=== PATIENT | male | born 1935 | race Hispanic/Latino ===

== ENCOUNTER → 2018-04-28 | Outpatient (CLI) | payer MEDICARE ==
--- NOTE | 2018-04-28 15:59 | Diagnostic Imaging Report ---
EXAMINATION: Head CT HISTORY: Alteration of consciousness, COMPARISON: None. TECHNIQUE: Multidetector axial images were obtained without contrast from the foramen magnum to the vertex . The images were reconstructed using brain and bone algorithms. Thin section brain images were reformatted into coronal and sagittal planes. Image quality: Motion/streaking artifact limits the evaluation of the skull base and posterior cranial fossa. Dose modulation, iterative reconstruction, and/or weight based adjustment of the mA/kV was utilized to reduce the radiation dose to as low as reasonably achievable. FINDINGS: Parenchyma: 1. Few scattered white matter hypodensities, most likely nonspecific chronic microvascular ischemic changes. 2. Scattered peripheral dystrophic calcifications, such as in the left inferior parietal lobule may represent sequela from remote infection such as neurocysticercosis.. 3. No mass or hemorrhage. No CT evidence of acute territorial vascular insult. Extra-axial spaces:No abnormal density. No extra-axial fluid collections Brain volume: Mild generalized spondylosis. Ventricles: No hydrocephalus or displacement. Arteries: No density suggestive of thrombus. Dural sinuses: No abnormal density. Extra-axial spaces: No abnormal density. Foramen magnum: No mass, Chiari malformation, or basilar invagination. Sella: No obvious mass. Paranasal/mastoid sinuses: Imaged portions unremarkable. Skull/Scalp: No lytic or blastic lesions. No fractures. IMPRESSION: 1. No acute intracranial abnormalities, no mass, hemorrhage or acute cortical infarcts. 2. Mild age-related chronic microvascular ischemic changes. 3. Mild generalized parenchymal volume loss. 4. Small peripheral dystrophic calcifications as detailed above. Signed by: Dr. Beth Pastrana M.D. on 04/28/2018 3:56 PM
== END ==
LOC: CT 15:11
PROVIDERS: ATTEND Family Medicine
DX: R41.82 Altered mental status, unspecified (principal)
CPT/HCPCS: 70450

== ENCOUNTER → 2020-05-23 | Outpatient (CLI) | payer MEDICARE | LOC: MRI 13:12 | PROVIDERS: ATTEND Family Medicine | DX: M54.16 Radiculopathy, lumbar region (principal) | CPT/HCPCS: 72148 ==